=== PATIENT | female | born 1960 | race Caucasian/White ===

== ENCOUNTER 2018-08-06 04:45 | Day surgery (SDC) | payer OTHER ==
[~2018-08-06 04:45] MED LIST: ASA81 MG PO; ATIVAN2 MG PO; COZAAR100 MG PO; NORVASC5 MG PO
[2018-08-06] MEDS ORDERED: DUI500 PO (08:50)
[2018-08-06] MEDS ORDERED: TRAM1TAB98 PO (08:50)
== END 2018-08-06 14:15 | disposition home or self-care (01) ==
LOC: CIR.AMB 04:45
DX: M23.222 Derangement of posterior horn of medial meniscus due to old tear or injury, left knee (principal); M65.862 Other synovitis and tenosynovitis, left lower leg